=== PATIENT | female | born 1975 | race Caucasian/White ===

== ENCOUNTER → 2016-07-28 | Outpatient (CLI) | payer BC ==
--- NOTE | 2016-07-28 09:08 | CT ---
EXAMINATION TYPE: CT brain wo con DATE OF EXAM: 07/28/2016 8:54 AM COMPARISON: NONE HISTORY: Patient complains of headaches, numbness, weakness, and visual disturbances. CT DLP: 1106 mGycm Automated exposure control for dose reduction was used. FINDINGS: There is no acute intracranial hemorrhage, mass effect, or midline shift identified. The ventricles and sulci are within normal limits in size. The globes are intact and the visualized sinuses are ngoc ar. IMPRESSION: No acute intracranial hemorrhage, mass effect, or midline shift is seen. If symptoms persist would re commend MRI to assess for demyelinating disease.
--- NOTE | 2016-07-28 10:05 | US ---
EXAMINATION TYPE: US pelvis complete transvag DATE OF EXAM: 07/28/2016 8:59 AM COMPARISON: NONE CLINICAL HISTORY: N92.0 menorrhagia. Past 4 months heavy cycles with clots TECHNIQUE: TA and TV endovaginal scanning performed for better evaluation of the uterus and ovaries. Date of LMP: 07/01/2016 EXAM MEASUREMENTS: Uterus: 9.3 x 5.7 x 5.3cm Endometrial Stripe: 1.8cm Right Ovary: 2.9 x 2.5 x 1.9cm Left Ovary: 2.6 x 2.0 x 1.5cm 1. Uterus: Retroverted, wnl 2. Endometrium: Slightly thickened. 3. Right Ovary: wnl 4. Left Ovary: wnl 5. Bilateral Adnexa: left adnexa mild free fluid 6. Posterior cul-de-sac: wnl Nabothian cysts are present within the cervix. IMPRESSION: Endometrial stripe thickness is slightly thickened, consider follow-up COFFEE FARMER consult, endom etrial biopsy as indicated. Small amount of free fluid is noted.
== END | disposition home or self-care (01) ==
LOC: RADCTMAIN 08:30
PROVIDERS: ATTEND Pediatrics
DX: G43.909 Migraine, unspecified, not intractable, without status migrainosus (principal); N92.0 Excessive and frequent menstruation with regular cycle
CPT/HCPCS: 70450; 76830; 76856

== ENCOUNTER → 2016-09-08 | Outpatient (CLI) | payer BC ==
[2016-09-08 11:49] LABS: Basophils # (A) 0.1 k/uL (0-0.2); Basophils % (A) 1 %; CH 31.4; CHCM 35.2; Eosinophils # (A) 0.1 k/uL (0-0.7); Eosinophils % (A) 1 %; HCT 41.8 % (34.0-46.0); HDW 2.78; HGB 14.4 gm/dL (11.4-16.0); Luc # (Auto) 0.17; Luc % (Auto) 2; Lymphocytes # (A) 1.2 k/uL (1.0-4.8); Lymphocytes % (A) 17 %; MCH 30.8 pg (25.0-35.0); MCHC 34.4 g/dL (31.0-37.0); MCV 89.5 fL (80.0-100.0); Mean Platelet Volume 7.3; Monocytes # (A) 0.4 k/uL (0-1.0); Monocytes % (A) 6 %; Neutrophils # (A) 5.1 k/uL (1.3-7.7); Neutrophils % (A) 72 %; RBC 4.66 m/uL (3.80-5.40); RDW 12.8 % (11.5-15.5); WBC (Perox) 7.16
== END | disposition home or self-care (01) ==
LOC: LABPAT 10:34
PROVIDERS: ATTEND Obstetrics & Gynecology
DX: Z01.812 Encounter for preprocedural laboratory examination (principal)
CPT/HCPCS: 36415; 85025

== ENCOUNTER 2016-09-15 06:37 | Day surgery (SDC) | payer BC ==
[2016-09-14 09:07] VITALS: BMI 34.1
--- NOTE | 2016-09-14 16:59 | P.HPOB ---
History of Present Illness H&P Date: 09/14/16 Chief Complaint: Menorrhagia This is a 41 y.o. female 5, para 3, who presents for dilatation and curettage with hysteroscopy and Novasure endometrial ablation due to menorrhagia. She states her menses are occuring every 3-4 weeks and are very heavy the 1st 2 days with clots and she saturates an overnight pad every 2 hours. Her pelvic US showed uterus measuring 9.3 x5.7 x 5.3 cm and endometrium measuring 1.8 cm. Both ovaries were normal. OB Hx: . 3 vaginal deliveries and 2 miscarriages. Senior Portfolio Analyst Hx: No history of STDs. had a vasectomy. Social Hx: . Works as a dental hygienist. Review of Systems Genitourinary: Reports dysmenorrhea, Reports menorrhagia Menstruation: Reports menses variable, Reports period heavy Past Medical History Past Medical History: Skin Disorder Additional Past Medical History / Comment(s): possible migraines, varicose veins , eczema, acne, History of Any Multi-Drug Resistant Organisms: None Reported Past Surgical History: Cholecystectomy Additional Past Surgical History / Comment(s): D&C Past Anesthesia/Blood Transfusion Reactions: Motion Sickness Past Psychological History: No Psychological Hx Reported Smoking Status: Former smoker Past Alcohol Use History: Rare Additional Past Alcohol Use History / Comment(s): quit smoking 5 yrs ago, was some day smoker Past Drug Use History: None Reported - Past Family History Mother Family Medical History: No Reported History Medications and Allergies Home Medications Medication Instructions Recorded Confirmed Type Ibuprofen [Advil] 400 mg PO Q8HR PRN 09/14/16 09/14/16 History Allergies Allergy/AdvReac Type Severity Reaction Status Date / Time No Known Allergies Allergy Verified 09/14/16 08:59 Exam Osteopathic Statement: *. No significant issues noted on an osteopathic structural exam other than those noted in the History and Physical/Consult. - Vital Signs Vital signs: Intake and Output 09/14/16 09/14/16 09/14/16 06:59 14:59 22:59 Other: Weight 92.986 kg Patient Weight 09/15/16 06:59 Weight 92.986 kg HEENT: within normal limits. Heart: regular rate and rhythm Lungs: clear to auscultation bilaterally Abdomen: soft, non-tender Extremities: neg. Susi's Pelvic: uterus retroverted, non-tender with no adnexal masses or tenderness. Assessment and Plan (1) Menorrhagia with regular cycle Status: Acute Plan: Proceed with dilatation and curettage with hysteroscopy and Novasure endometrial ablation. I have discussed the risks, benefits, and alternative therapies for the above- mentioned procedure and for both sedation/anesthesia as well as necessary blood products administration, if indicated, as they pertain to this patient. The patient has indicated her understanding and acceptance of the risks and procedures discussed.
[~2016-09-15 06:37] MED LIST: DEXAMETHASONE SOD PHOSPHATE 10 MG/ML 1 ML VIAL IV ONE; HYDROmorphone 1 MG/ML 1 ML SYRINGE IVP PRN; LACTATED RINGERS 1,000 ML IV SCH; MIDAZOLAM 2 MG/2 ML VIAL IV PRN; ONDANSETRON 4 MG/2 ML VIAL IVP ONE; Pre Op ABX Message 1 EACH MISC MISCELLANE ONE; SCOPOLAMINE 1.5MG/72HR PATCH TRANSDERM ONE
[2016-09-15] MEDS ORDERED: LIDOCAINE 1% 20 ML VIAL (10MG/ML) FOR IV START INTRADERMA ONE (07:00)
[2016-09-15] MEDS ORDERED: KETOROLAC 30 MG/ML 1 ML VIAL ONE (07:26)
[2016-09-15] MEDS ORDERED: SUCCINYLCHOLINE CHLORIDE 100 MG/5 ML SYR IV ONE (07:26)
[2016-09-15] MEDS ORDERED: LIDOCAINE 1% INJ 10MG/ML (20 ML MDV) ONE (07:26)
[2016-09-15] MEDS ORDERED: PROPOFOL 10 MG/ML 20 ML VIAL IV ONE (07:26)
[2016-09-15] MEDS ORDERED: MIDAZOLAM 2 MG/2 ML VIAL ONE (07:26)
--- NOTE | 2016-09-15 08:06 | P.OP ---
Date of Procedure: 09/15/16 Preoperative Diagnosis: Menorrhagia Postoperative Diagnosis: Same Procedure(s) Performed: Dilation and curettage with hysteroscopy and NovaSure endometrial ablation Anesthesia: JOHN Surgeon: Mary Eduardo Estimated Blood Loss (ml): 3 Pathology: other (Endometrial curettings) Condition: stable Disposition: same day Indications for Procedure: This is a 41 y.o. female 5, para 3, who presents for dilatation and curettage with hysteroscopy and Novasure endometrial ablation due to menorrhagia. She states her menses are occuring every 3-4 weeks and are very heavy the 1st 2 days with clots and she saturates an overnight pad every 2 hours. Her pelvic US showed uterus measuring 9.3 x5.7 x 5.3 cm and endometrium measuring 1.8 cm. Both ovaries were normal. Operative Findings: Uterus is retroverted, sounded to 9 cm. Cervix is sounded to 3 cm. No adnexal masses are palpated. Upon hysteroscopy, a slightly dyssynchronous endometrial pattern was noted however no polyps or fibroids were visualized. A moderate amount of endometrial curettings are obtained. Description of Procedure: The patient is taken to the operating room. She is placed in the dorsal lithotomy position after general anesthesia was given. She is prepped and draped in the normal sterile fashion. Bladder is drained with a catheter and then removed. Pelvic exam is performed under anesthesia. Uterus is found to be retroverted with no adnexal masses. She is placed in slight Trendelenburg position. A right angle retractor is used to visualize the cervix. The anterior lip of the cervix is grasped with a single-tooth tenaculum. Cervix is sounded to 3 cm. Uterus is sounded to 9 cm. Cervix is gently dilated with Foster dilators until a hysteroscope could be passed. Hysteroscopy is performed using normal saline. The above noted findings are noted. Next a polyp forceps is introduced. A minimal amount of tissue was obtained. Next medium-sized size sharp curette was placed. A moderate amount of endometrial curettings were obtained. Next NovaSure array was inserted into the endometrial cavity. Length was set at 6 cm and width was determined to be 4.8 cm. Next cavity assessment was completed and passed on the first try. Next NovaSure array was fired at 158 W for 56 seconds. Next the array was removed, inspected and then discarded. Next the hysteroscope was reinserted. Uniform charring was noted. Pictures were taken. Hysteroscope was removed. Single-tooth tenaculum was removed from the anterior lip of the cervix. Minimal bleeding was noted. All other instruments removed from the vagina. Sponge counts were correct. Patient is taken to recovery room in stable condition.
[2016-09-15 08:15] VITALS: TEMP 97.4
[2016-09-15 09:22] VITALS: RESP 18
[2016-09-15 09:42] VITALS: BP 121/72; PULSE 70
== END 2016-09-15 10:11 | disposition home or self-care (01) ==
LOC: OR 06:37
PROVIDERS: ATTEND Obstetrics & Gynecology
DX: N92.0 Excessive and frequent menstruation with regular cycle (principal); N94.6 Dysmenorrhea, unspecified; Z87.891 Personal history of nicotine dependence
CPT/HCPCS: 81025; 88305; 58563; J2250; J1100; J2405; J2001; J1885; J0330; J2704

== ENCOUNTER → 2016-10-06 | Outpatient (CLI) | payer BC | END | disposition home or self-care (01) | LOC: LABWHC1 11:14 | PROVIDERS: ATTEND Obstetrics & Gynecology | DX: L68.0 Hirsutism (principal) | CPT/HCPCS: 36415; 82627; 83498; 84402; 84439; 84443 ==

== ENCOUNTER → 2019-08-16 | Outpatient (CLI) | payer OTHER ==
--- NOTE | 2019-08-16 10:04 | MM ---
Reason for exam: screening (asymptomatic). Baseline mammogram. Physical Findings: Nurse Summary: bilateral nodularity, all soft, movable, areas of light discoloration noted on bilateral areolas/nipples, patient notes no changes (nurse ts). MG 3D Screening Mammo W/Cad Bilateral CC and MLO view(s) were taken. The breast tissue is heterogeneously dense. This may lower the sensitivity of mammography. Finding: There is an equal density (isodense), circumscribed lobulated mass located 12.3 cm from the nipple in the posterior position of the left breast on MLO view. These results were verbally communicated with the patient and result sheet given to the patient on 08/16/19. ASSESSMENT: Incomplete: need additional imaging evaluation, BI-RAD 0 RECOMMENDATION: Special view mammogram and ultrasound of the left breast.
--- NOTE | 2019-08-16 10:05 | MM ---
Reason for exam: additional evaluation requested from abnormal screening. Physical Findings: Breast exam preformed at baseline screening. MG 3D Work Up W/Cad LT Spot compression MLO, XCCL, and ML view(s) were taken of the left breast. The breast tissue is heterogeneously dense. This may lower the sensitivity of mammography. Focal asymmetry left posterior, less well visualized on diagnostic imaging. These results were verbally communicated with the patient and result sheet given to the patient on 08/16/19. ASSESSMENT: Incomplete: need additional imaging evaluation, BI-RAD 0 RECOMMENDATION: Ultrasound of the left breast.
--- NOTE | 2019-08-16 10:09 | USB ---
Reason for exam: additional evaluation requested from abnormal screening. US Breast Workup Limited LT Left limited breast ultrasound including focal area of concern, retroareolar and axilla demonstrates a 0.9 x 0.3 x 0.9cm oval, hypoechoic lesion at 3 o'clock, lobe versus node, normal parenchymal and tissue favored. These results were verbally communicated with the patient and result sheet given to the patient on 08/16/19. ASSESSMENT: Probably benign, BI-RAD 3 RECOMMENDATION: Follow-up diagnostic mammogram and ultrasound of the left breast in 6 months.
== END | disposition home or self-care (01) ==
LOC: RADMAMWWP 07:49
PROVIDERS: ATTEND Pediatrics
DX: Z12.31 Encounter for screening mammogram for malignant neoplasm of breast (principal); R92.8 Other abnormal and inconclusive findings on diagnostic imaging of breast
CPT/HCPCS: 77061; 77063; 77065; 77067

== ENCOUNTER → 2020-06-09 | Outpatient (CLI) | payer OTHER ==
--- NOTE | 2020-06-09 11:01 | MM ---
Reason for exam: follow-up at short interval from prior study. Last mammogram was performed 10 months ago. Physical Findings: Nurse did not find any significant physical abnormalities on exam. MG 3D Diag Mammo W/Cad LT CC, MLO, and XCCL view(s) were taken of the left breast. Prior study comparison: August 16, 2019, left breast MG 3d work up w/cad LT. August 16, 2019, bilateral MG 3d screening mammo w/cad. The breast tissue is heterogeneously dense. This may lower the sensitivity of mammography. Focal asymmetry posterior ML. No significant new findings when compared with previous films. These results were verbally communicated with the patient and result sheet given to the patient on 06/09/20. ASSESSMENT: Benign, BI-RAD 2 RECOMMENDATION: Return to routine screening mammogram schedule for both breasts. Back on schedule for July 2020.
--- NOTE | 2020-06-09 11:02 | USB ---
Reason for exam: follow-up at short interval from prior study. US Breast Limited LT Prior study comparison: August 16, 2019, left breast US breast workup limited LT. Left limited breast ultrasound including focal area of concern, retroareolar and axilla demonstrates a 8 x 3 x 7mm hypoehoic lesion at 3 o'clock. These results were verbally communicated with the patient and result sheet given to the patient on 06/09/20. ASSESSMENT: Benign, BI-RAD 2 RECOMMENDATION: Return to routine screening mammogram schedule for both breasts. Back on schedule for July 2020.
== END | disposition home or self-care (01) ==
LOC: RADMAMWWP 07:09
PROVIDERS: ATTEND Pediatrics
DX: R92.8 Other abnormal and inconclusive findings on diagnostic imaging of breast (principal)
CPT/HCPCS: 77061; 77065

== ENCOUNTER → 2022-01-05 | Outpatient (CLI) | payer OTHER ==
--- NOTE | 2022-01-07 07:31 | MM ---
Reason for Exam: Screening (asymptomatic). Last mammogram was performed 2 year(s) and 5 month(s) ago. Indicated Problems: Skin changes to breast of the left side for 1 Month(s). Patient History: Menarche at age 12. First Full-Term at age 28. Last menstrual period: Risk Values: Svetlana 5 year model risk: 0.9%. NCI Lifetime model risk: 11.7%. Prior Study Comparison: 08/16/2019 Bilateral Screening Mammogram, [facility]. 08/16/2019 Left Diagnostic Mammogram, [facility]. 06/09/2020 Left Diagnostic Mammogram, [facility]. Tissue Density: The breast tissue is heterogeneously dense. This may lower the sensitivity of mammography. Findings: Analyzed By CAD. There is no suspicious group of microcalcifications or new suspicious mass in either breast. Unchanged focal asymmetry posterior ML likely a lymph node. No significant change from prior examination. Overall Assessment: Benign, BI-RAD 2 Management: Screening Mammogram of both breasts in 1 year. A clinical breast exam by your physician is recommended on an annual basis and results should be correlated with mammographic findings. Electronically signed and approved by: Carlton Sands D.O.
== END | disposition home or self-care (01) ==
LOC: RADMAMWWP 16:13
PROVIDERS: ATTEND Pediatrics
DX: Z12.31 Encounter for screening mammogram for malignant neoplasm of breast (principal)
CPT/HCPCS: 77063; 77067

== ENCOUNTER → 2022-01-06 | Outpatient (CLI) | payer OTHER ==
[2022-01-06 14:42] LABS: Basophils # (A) 0.05 X 10*3/uL (0.00-0.10); Basophils % (A) 0.9 %; Eosinophils # (A) 0.09 X 10*3/uL (0.04-0.35); Eosinophils % (A) 1.6 %; HCT 42.5 % (37.2-46.3); HGB 14.1 g/dL (12.0-15.0); Immature Grans, Automated 0.2 %; Lymphocytes # (A) 1.08 X 10*3/uL (0.90-5.00); Lymphocytes % (A) 18.7 %; MCH 30.9 pg (27.0-32.0); MCHC 33.2 g/dL (32.0-37.0); MCV 93.2 fL (80.0-97.0); Mean Platelet Volume 9.9 fL (9.5-12.2); Monocytes # (A) 0.53 X 10*3/uL (0.20-1.00); Monocytes % (A) 9.2 %; NRBC Per 100 WBC 0 /100 WBCS (0.0-0.0); Neutrophils # (A) 4.03 X 10*3/uL (1.80-7.70); Neutrophils % (A) 69.4 %; Platelet Count 319 X 10*3/uL (140-440); RBC 4.56 X 10*6/uL (4.10-5.20); RDW 12.4 % (11.5-14.5); WBC 5.79 X 10*3/uL (4.50-10.00)
[2022-01-06 15:00] LABS: ALT 9 U/L (8-44); AST 16 U/L (13-35); African American GFR (CKD) 96.7 (60.0-200.0); Albumin 4.4 g/dL (3.8-4.9); Albumin/Globulin Ratio 1.86 (1.60-3.17); Alkaline Phosphatase 41 U/L (41-126); BUN/Creat Ratio 14.02 Ratio (12.00-20.00); Blood Urea Nitrogen 11.9 mg/dL (9.0-27.0); Calcium 9.2 mg/dL (8.7-10.3); Carbon Dioxide 25.4 mmol/L (20.0-27.5); Chloride 104 mmol/L (96-109); Chol/HDL Ratio 2.91 Ratio; Globulin 2.4 g/dL (1.6-3.3); Glucose 88 mg/dL (70-110); LDL Cholesterol,Calculated 112.5 mg/dL (0.0-131.0); Non-African American GFR(CKD) 83.5 (60.0-200.0); Potassium 4.5 mmol/L (3.5-5.5); Sodium 141 mmol/L (135-145); Total Protein 6.7 g/dL (6.2-8.2); VLDL Calculation 10.26 mg/dL (5.00-40.00)
[2022-01-06 15:06] LABS: Hepatitis A Antibody IgM Nonreactive (Nonreactive); Hepatitis B Core IgM Nonreactive (Nonreactive); Hepatitis B Surface Antigen Nonreactive (Nonreactive); Hepatitis C IgG Antibody Nonreactive (Nonreactive)
[2022-01-07 13:14] LABS: C. trachomatis,PCR Negative (Neg,Equiv); Chlamydia trachomatis Source Urine; N. gonorrhoeae,PCR Negative (Neg,Equiv); Neisseria Source Urine
[2022-01-07 14:45] LABS: HIV 2 AB Non-Reactive (Non-Reactive); HIV AB P24 Non-Reactive (Non-Reactive); HIV P24 AG Non-Reactive (Non-Reactive)
== END | disposition home or self-care (01) ==
LOC: LABWHC1 07:27
PROVIDERS: ATTEND Physician Assistant
DX: Z00.01 Encounter for general adult medical examination with abnormal findings (principal); Z13.220 Encounter for screening for lipoid disorders; F41.9 Anxiety disorder, unspecified; Z72.51 High risk heterosexual behavior
CPT/HCPCS: 36415; 80053; 80061; 80074; 84443; 85025; 86780; 87390; 87491; 87591

== ENCOUNTER 2022-07-26 09:31 | Emergency (ER) | payer OTHER ==
[2022-07-26 09:58] VITALS: RESP 16
[2022-07-26] MEDS ORDERED: RX INFO: IV CONTRAST WAS GIVEN 1 EACH MISC MISCELLANE PRN (09:58)
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
[2022-07-26 10:30] LABS: Basophils % (A) 0 %; Eosinophils # (A) 0.1 k/uL (0-0.7); Eosinophils % (A) 1 %; Lymphocytes # (A) 0.9 k/uL (1.0-4.8); Lymphocytes % (A) 14 %; MCH 31.9 pg (25.0-35.0); MCHC 35.7 g/dL (31.0-37.0); MCV 89.4 fL (80.0-100.0); Mean Platelet Volume 7.3; Monocytes # (A) 0.4 k/uL (0-1.0); Monocytes % (A) 6 %; Neutrophils % (A) 77 %; Platelet Count 291 k/uL (150-450); RDW 12.8 % (11.5-15.5); WBC 6.5 k/uL (3.8-10.6)
[2022-07-26 10:39] LABS: ALT 21 U/L (4-34); AST 23 U/L (14-36); African American GFR (CKD) >90 (>60 ml/min/1.73 sqM); Albumin 4.2 g/dL (3.5-5.0); Alcohol <10 mg/dL; Alkaline Phosphatase 36 U/L (38-126); Anion Gap 6 mmol/L; Blood Urea Nitrogen 8 mg/dL (7-17); Calcium 8.8 mg/dL (8.4-10.2); Carbon Dioxide 25 mmol/L (22-30); Chloride 108 mmol/L (98-107); Glucose 84 mg/dL (74-99); Non-African American GFR(CKD) >90 (>60 ml/min/1.73 sqM); Potassium 3.8 mmol/L (3.5-5.1); Sodium 139 mmol/L (137-145); Total Bilirubin 2.2 mg/dL (0.2-1.3); Total Protein 6.9 g/dL (6.3-8.2)
[2022-07-26 10:47] LABS: INR 0.9 (<1.2); Partial Thromboplastin Time 23.5 sec (22.0-30.0); Prothrombin Time 9.5 sec (9.0-12.0)
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
[2022-07-26] MEDS ORDERED: ACET/COD 300 MG/30 MG STARTER PACK 6 TAB BTL PO STA (11:40)
[2022-07-26 12:11] VITALS: BP 133/94; PULSE 87; TEMP 97.8
== END 2022-07-26 12:11 | disposition home or self-care (01) ==
LOC: EC 09:31
DX: S20.219A Contusion of unspecified front wall of thorax, initial encounter (principal); Y92.411 Interstate highway as the place of occurrence of the external cause
CPT/HCPCS: 36415; 93005; 80053; 84484; 85025; 85610; 85730; 80320; 71260; 99285; Q9967

== ENCOUNTER → 2023-04-28 | Outpatient (CLI) | payer OTHER ==
--- NOTE | 2023-05-01 08:07 | MM ---
Reason for Exam: Screening (asymptomatic). Last mammogram was performed 1 year(s) and 4 month(s) ago. Patient History: Menarche at age 12. First Full-Term at age 28. Premenopausal. Risk Values: Svetlana 5 year model risk: 1.0%. NCI Lifetime model risk: 11.6%. Prior Study Comparison: 08/16/2019 Left Diagnostic Mammogram, [facility]. 06/09/2020 Left Diagnostic Mammogram, [facility]. 01/05/2022 Bilateral MG 3D screening mammo w/cad, [facility]. Tissue Density: The breast tissue is heterogeneously dense. This may lower the sensitivity of mammography. Findings: Analyzed By CAD. There is no suspicious group of microcalcifications or new suspicious mass. Overall Assessment: Negative, BI-RAD 1 Management: Screening Mammogram of both breasts in [address] [facility] will attempt to contact patient to return for supplemental views and ultrasound if indicated. Patient should continue monthly self-breast exams. A clinical breast exam by your physician is recommended on an annual basis. This exam should not preclude additional follow-up of suspicious palpable abnormalities. Note on Svetlana scores and lifetime risk: 1. A Svetlana score greater than 3% is considered moderate risk. If this is the case, consider specialist referral to assess eligibility for a risk reducing agent. 2. If overall lifetime risk for the development of breast cancer is 20% or higher, the patient may qualify for future screening with alternating mammogram and breast MRI. Electronically signed and approved by: Tom Mendoza DO
== END | disposition home or self-care (01) ==
LOC: RADMAMWWP 16:59
PROVIDERS: ATTEND Pediatrics
DX: Z12.31 Encounter for screening mammogram for malignant neoplasm of breast (principal)
CPT/HCPCS: 77063; 77067

== ENCOUNTER 2024-08-18 18:45 | Emergency (ER) | payer OTHER ==
[2024-08-18 19:13] VITALS: RESP 18; TEMP 98.5
--- NOTE | 2024-08-18 20:11 | ED ---
General Adult HPI <Tom Lake Poonam - Last Filed: 08/18/24 22:15> - General Source: patient Mode of arrival: ambulatory Limitations: no limitations <Sierra LeoneanEliana - Last Filed: 08/19/24 10:10> - General Chief complaint: Shortness of Breath Stated complaint: cough back pain Time Seen by Provider: 08/18/24 19:17 - History of Present Illness Initial comments: Patient is a 49-year-old female past medical history smoking, presents today for left lower rib pain, worsens with deep breathing. Pt states was diagnosed with bronchitis on Monday at her PCP's office. States that since then she has had w orsening left lower rib pain, is intermittently across her diaphragm worse with coughing and deep breathing. Patient took DayQuil yesterday morning no pain medication since. She states she has had a persistent and worsening cough, intermittently productive of sputum no hemoptysis. She used an old albuterol inhaler last night that seem to intermittently help her symptoms. She is currently taking azithromycin and prednisone. Denies any fevers, endorses chills. Denies other chest pain, does states she feels somewhat short of breath intermittently. Denies nausea, vomiting, abdominal pain. No history of prior PE or ACS. No recent travel surgeries hospitalizations. She is not on co ntrol or estrogen placement. No lower extremity swelling. She does currently smoke 4 cigarettes a day. (Eliana Eastman) - Related Data Home Medications Medication Instructions Recorded Confirmed Ibuprofen [Advil] 400 mg PO Q8HR PRN 09/14/16 09/14/16 Previous Rx's Medication Instructions Recorded Cyclobenzaprine [Flexeril] 10 mg PO TID PRN #12 tablet 07/26/22 Albuterol Inhaler [Ventolin Hfa 1 - 2 puff INHALATION Q4HR PRN #1 08/18/24 Inhaler] each Allergies Allergy/AdvReac Type Severity Reaction Status Date / Time No Known Allergies Allergy Verified 08/18/24 19:13 Review of Systems ROS Other: All systems not noted in ROS Statement are negative. <Tom Lake - Last Filed: 08/18/24 22:15> ROS Other: All systems not noted in ROS Statement are negative. <Eliana Eastman - Last Filed: 08/19/24 10:10> ROS Statement: Those systems with pertinent positive or pertinent negative responses have been documented in the HPI. Past Medical History Past Medical History: No Reported History History of Any Multi-Drug Resistant Organisms: None Reported Past Surgical History: Cholecystectomy Additional Past Surgical History / Comment(s): D&C Past Psychological History: No Psychological Hx Reported Smoking Status: Current every day smoker Past Alcohol Use History: Occasional Past Drug Use History: None Reported <Eliana Eastman - Last Filed: 08/19/24 10:10> General Exam Limitations: no limitations <Eliana Eastman - Last Filed: 08/19/24 10:10> - General Exam Comments Initial Comments: PE: CONSTITUTIONAL: No apparent distress, well appearing SKIN: Warm, dry, no jaundice, hives or petechiae EYES: Pupils are equally round, extraocular movements intact without nystagmus, clear conjunctiva, non-icteric sclera HENT: Normocephalic, atraumatic, moist mucus membranes, oropharynx clear without exudates NECK: , Full range of motion, normal appearance PULMOclear to auscultation without wheezes, rhonchi, or rales, normal excursion, no accessory muscle use and no stridor] CARDIOVASCULAR: Regular rate, rhythm, normal S1 and S2. No appreciated murmurs, rubs or gallops. Strong radial pulses with intact distal perfusion. No lower extremity edema GASTROINTESTINAL: Soft, active bowel sounds throughout, non-tender, non- distended, no palpable masses, no rebound or guarding. No hepatosplenomegaly MUSCULOSKELETAL: Extremities have no gross deformity, no edema, redness, or swelling. No calf swelling NEUROLOGIC:_a/o x 3, GCS 15, normal mentation and speech. Moves all extremities x 4 without motor or sensory deficit PSYCHIATRIC:_normal mood and affect, thought process is clear and linear (Eliana Eastman) Course Vital Signs 08/18/24 08/18/24 08/18/24 19:10 19:35 21:22 Temperature 98.5 F Pulse Rate 95 88 Respiratory 18 18 Rate Blood Pressure 166/89 O2 Sat by Pulse 96 Oximetry 08/18/24 08/18/24 21:33 22:25 Temperature Pulse Rate 84 78 Respiratory 18 Rate Blood Pressure 153/103 O2 Sat by Pulse 100 Oximetry EKG Findings - EKG Comments: EKG Findings:: Sinus rhythm, rate 69 bpm CO interval 159 ms QT/QTc 347/366 ms, borderline left axis deviation, no ST elevations or depressions, T wave inversion lead aVR, no STEMI <Eliana Eastman - Last Filed: 08/19/24 10:10> Medical Decision Making - Lab Data Result diagrams: 08/18/24 20:19 <Tom Lake - Last Filed: 08/18/24 22:15> - Lab Data Result diagrams: 08/18/24 20:19 08/18/24 20:19 <Eliana Eastman - Last Filed: 08/19/24 10:10> - Medical Decision Making Chest x-ray is showing bilateral lower atelectasis versus infiltrate. Patient currently on antibiotics. She does test positive for RSV likely the cause of her acute bronchitis she will continue antibiotics. Workup in the emergency department with laboratory test including CBC, CMP, D-dimer and troponin is unremarkable. Stable for discharge. (Tom Lake Poonam) Was pt. sent in by a medical professional or institution (, PA, SLEEP MEDICINE PHYSICIAN, urgent care, hospital, or snf...) When possible be specific @ -No Did you speak to anyone other than the patient for history (EMS, parent, family, police, friend...)? What history was obtained from this source @ -No Did you review nursing and triage notes (agree or disagree)? Why? @ -I reviewed nursing and triage notes-states diagnosed of bronchitis on Monday Were old charts reviewed (outside hosp., previous admission, EMS record, old EKG, old radiological studies, urgent care reports/EKG's, snf records)? Report findings @ -Medical records reviewed Differential Diagnosis (chest pain, altered mental status, abdominal pain women, abdominal pain men, vaginal bleeding, weakness, fever, dyspnea, syncope, headache, dizziness, GI bleed, back pain, seizure, CVA, palpatations, mental health, musculoskeletal)? @Differential Dyspnea: Coronary syndrome, arrhythmia, tamponade, asthma, COPD, pulmonary embolism, pneumonia, pneumothorax, pulmonary effusion, anaphylaxis, diabetic ketoacidosis, flailed chest, pulmonary contusion, diaphragmatic rupture, anemia, neuromuscular, this is not meant to be an all-inclusive list. EKG interpreted by me (3pts min.). @ -As above X-rays interpreted by me (1pt min.). @Pending at time of signout to oncoming physician CT interpreted by me (1pt min.). @ -None done U/S interpreted by me (1pt. min.). @ -None done What testing was considered but not performed or refused? (CT, X-rays, U/S, labs)? Why? @ -None What meds were considered but not given or refused? Why? @ -None Did you discuss the management of the patient with other professionals (professionals i.e. , PA, SLEEP MEDICINE PHYSICIAN, lab, RT, psych nurse, social work supervisor, ambulance paramedic, teacher, correction officer reformatory, manager case management)? Give summary @ -No Was smoking cessation discussed for >3mins.? @ -No Was critical care preformed (if so, how long)? @ -No Were there social determinants of health that impacted care today? How? (Homelessness, low income, unemployed, alcoholism, drug addiction, transportati on, low edu. Level, literacy, decrease access to med. care, senior living, rehab)? @ -No Was there de-escalation of care discussed even if they declined (Discuss DNR or withdrawal of care, Hospice)? @ -No What co-morbidities impacted this encounter? (DM, HTN, Smoking, COPD, CAD, Cancer, CVA, ARF, Chemo, Hep., AIDS, mental health diagnosis, sleep apnea, morbid obesity)? @Current smoker Was patient admitted / discharged? Hospital course, mention meds given and route, prescriptions, significant lab abnormalities, going to OR and other pertinent info. @Signed out to oncoming physician pending completion of labs -this is a 49-year-old female, previously healthy presenting today for pleuritic chest pain, mild shortness of breath shortly after being diagnosed with bronchitis. Afebrile here, no hypoxemia. Hypertensive, no tachycardia. Exam shows scant wheezing, rhonchi in left lower and left mid lung grove. She is nontoxic- appearing. Plan for Decadron, DuoNeb, Robitussin, Tylenol, basic labs EKG, D- dimer. D-dimer will determine whether patient received chest x-ray or CTA. Highly suspect pneumonia versus pleuritis as opposed to PE or other acute process. Patient agreeable plan of care. Patient signed out to oncoming physician Dr. Helmreich pending completion of lab. (S[place] Leonean,Eliana) - Lab Data Lab Results 08/18/24 08/18/24 08/18/24 Range/Units 20:19 20:19 20:19 WBC 6.3 (3.8-10.6) k/uL RBC 4.96 (3.80-5.40) m/uL Hgb 15.4 (11.4-16.0) gm/dL Hct 44.6 (34.0-46.0) % MCV 89.9 (80.0-100.0) fL MCH 30.9 (25.0-35.0) pg MCHC 34.4 (31.0-37.0) g/dL RDW 12.5 (11.5-15.5) % Plt Count 287 (150-450) k/uL MPV 8.5 Neutrophils % 77 % Lymphocytes % 13 % Monocytes % 7 % Eosinophils % 2 % Basophils % 1 % Neutrophils # 4.8 (1.3-7.7) k/uL Lymphocytes # 0.8 L (1.0-4.8) k/uL Monocytes # 0.4 (0-1.0) k/uL Eosinophils # 0.1 (0-0.7) k/uL Basophils # 0.0 (0-0.2) k/uL PT 9.5 L (10.0-12.5) sec INR 0.8 (<1.2) APTT 20.2 L (22.0-30.0) sec D-Dimer 0.41 (<0.60) mg/L FEU Sodium 138 (137-145) mmol/L Potassium 4.5 (3.5-5.1) mmol/L Chloride 103 (98-107) mmol/L Carbon Dioxide 23 (22-30) mmol/L Anion Gap 12 mmol/L BUN 23 H (7-17) mg/dL Creatinine 0.69 (0.52-1.04) mg/dL Est GFR (CKD-EPI)AfAm >90 (>60 ml/min/1.73 sqM) Est GFR (CKD-EPI)NonAf >90 (>60 ml/min/1.73 sqM) Glucose 108 H (74-99) mg/dL Calcium 9.5 (8.4-10.2) mg/dL Total Bilirubin 0.8 (0.2-1.3) mg/dL AST 45 H (14-36) U/L ALT 42 H (4-34) U/L Alkaline Phosphatase 27 L (38-126) U/L Troponin I (0.000-0.034) ng/mL NT-Pro-B Natriuret Pep 81 pg/mL Total Protein 7.6 (6.3-8.2) g/dL Albumin 4.6 (3.5-5.0) g/dL Influenza Type A (PCR) (Not Detectd) Influenza Type B (PCR) (Not Detectd) RSV (PCR) (Not Detectd) SARS-CoV-2 (PCR) (Not Detectd) 08/18/24 08/18/24 Range/Units 20:19 20:19 WBC (3.8-10.6) k/uL RBC (3.80-5.40) m/uL Hgb (11.4-16.0) gm/dL Hct (34.0-46.0) % MCV (80.0-100.0) fL MCH (25.0-35.0) pg MCHC (31.0-37.0) g/dL RDW (11.5-15.5) % Plt Count (150-450) k/uL MPV Neutrophils % % Lymphocytes % % Monocytes % % Eosinophils % % Basophils % % Neutrophils # (1.3-7.7) k/uL Lymphocytes # (1.0-4.8) k/uL Monocytes # (0-1.0) k/uL Eosinophils # (0-0.7) k/uL Basophils # (0-0.2) k/uL PT (10.0-12.5) sec INR (<1.2) APTT (22.0-30.0) sec D-Dimer (<0.60) mg/L FEU Sodium (137-145) mmol/L Potassium (3.5-5.1) mmol/L Chloride (98-107) mmol/L Carbon Dioxide (22-30) mmol/L Anion Gap mmol/L BUN (7-17) mg/dL Creatinine (0.52-1.04) mg/dL Est GFR (CKD-EPI)AfAm (>60 ml/min/1.73 sqM) Est GFR (CKD-EPI)NonAf (>60 ml/min/1.73 sqM) Glucose (74-99) mg/dL Calcium (8.4-10.2) mg/dL Total Bilirubin (0.2-1.3) mg/dL AST (14-36) U/L ALT (4-34) U/L Alkaline Phosphatase (38-126) U/L Troponin I <0.012 (0.000-0.034) ng/mL NT-Pro-B Natriuret Pep pg/mL Total Protein (6.3-8.2) g/dL Albumin (3.5-5.0) g/dL Influenza Type A (PCR) Not Detected (Not Detectd) Influenza Type B (PCR) Not Detected (Not Detectd) RSV (PCR) Detected A (Not Detectd) SARS-CoV-2 (PCR) Not Detected (Not Detectd) Disposition Is patient prescribed a controlled substance at d/c from ED?: No Time of Disposition: 22:04 <Tom Lake - Last Filed: 08/18/24 22:15> <Eliana Eastman - Last Filed: 08/19/24 10:10> Clinical Impression: RSV (respiratory syncytial virus infection) Disposition: HOME SELF-CARE Condition: Good Instructions (If sedation given, give patient instructions): Respiratory Syncytial Virus (ED) Prescriptions: Albuterol Inhaler [Ventolin Hfa Inhaler] 1 - 2 puff INHALATION Q4HR PRN #1 each PRN Reason: Shortness Of Breath Referrals: Michael Gomes MD [Primary Care Provider] - 1-2 days
[2024-08-18] MEDS: guaiFENesin 600 MG TABLET.ER PO STA (20:20)
[2024-08-18] MEDS: ACETAMINOPHEN TAB 500 MG TAB PO STA (20:20)
[2024-08-18] MEDS: SODIUM CHLORIDE 0.9% 1,000 ML IV STA (20:24)
[2024-08-18] MEDS: KETOROLAC 15 MG/ML 1 ML VIAL IVP STA (20:25)
[2024-08-18] MEDS: DEXAMETHASONE SOD PHOSPHATE 10 MG/ML 1 ML VIAL IVP STA (20:26)
[2024-08-18 20:39] LABS: Basophils % (A) 1 %; Eosinophils # (A) 0.1 k/uL (0-0.7); Eosinophils % (A) 2 %; HCT 44.6 % (34.0-46.0); HGB 15.4 gm/dL (11.4-16.0); Lymphocytes # (A) 0.8 k/uL (1.0-4.8); Lymphocytes % (A) 13 %; MCH 30.9 pg (25.0-35.0); MCHC 34.4 g/dL (31.0-37.0); MCV 89.9 fL (80.0-100.0); Mean Platelet Volume 8.5; Monocytes # (A) 0.4 k/uL (0-1.0); Monocytes % (A) 7 %; Neutrophils # (A) 4.8 k/uL (1.3-7.7); Neutrophils % (A) 77 %; Platelet Count 287 k/uL (150-450); RBC 4.96 m/uL (3.80-5.40); RDW 12.5 % (11.5-15.5); WBC 6.3 k/uL (3.8-10.6)
[2024-08-18 20:56] LABS: ALT 42 U/L (4-34); AST 45 U/L (14-36); African American GFR (CKD) >90 (>60 ml/min/1.73 sqM); Albumin 4.6 g/dL (3.5-5.0); Alkaline Phosphatase 27 U/L (38-126); Anion Gap 12 mmol/L; Blood Urea Nitrogen 23 mg/dL (7-17); Calcium 9.5 mg/dL (8.4-10.2); Carbon Dioxide 23 mmol/L (22-30); Chloride 103 mmol/L (98-107); Glucose 108 mg/dL (74-99); Non-African American GFR(CKD) >90 (>60 ml/min/1.73 sqM); Sodium 138 mmol/L (137-145); Total Bilirubin 0.8 mg/dL (0.2-1.3); Total Protein 7.6 g/dL (6.3-8.2)
[2024-08-18 21:03] LABS: INR 0.8 (<1.2); Prothrombin Time 9.5 sec (10.0-12.5)
[2024-08-18 21:04] LABS: NT-Pro-B-Type Natriuretic Pept 81 pg/mL
[2024-08-18 21:20] LABS: Influenza A Not Detected (Not Detectd); Influenza B Not Detected (Not Detectd); RSV Detected (Not Detectd)
[2024-08-18] MEDS: ALBUTEROL NEBULIZED 2.5 MG/3 ML INHALATION STA (21:22)
[2024-08-18] MEDS: IPRATROPIUM 0.5 MG/2.5 ML NEBU INHALATION STA (21:22)
[2024-08-18 21:27] LABS: Partial Thromboplastin Time 20.2 sec (22.0-30.0)
--- NOTE | 2024-08-18 22:06 | XR ---
EXAMINATION TYPE: XR chest 2V DATE OF EXAM: 08/18/2024 9:52 PM COMPARISON: None. CLINICAL INDICATION: Female, 49 years old with history of cough, TECHNIQUE: XR chest 2V view(s) obtained. FINDINGS: The heart size is normal. The pulmonary vasculature is normal. Mild bibasilar infiltrates may be present. Correlate for subsegmental atelectasis or early pneumonia. IMPRESSION: 1. Mild bibasilar infiltrates. Correlate for subsegmental atelectasis or early pneumonia [facility], , 08/18/2024 10:04 PM
[2024-08-18 22:18] LABS: Potassium 4.5 mmol/L (3.5-5.1)
[2024-08-18 22:28] VITALS: BP 153/103; PULSE 78
== END 2024-08-18 22:25 | disposition home or self-care (01) ==
LOC: EC 18:45
DX: R05.9 Cough, unspecified (principal); B97.4 Respiratory syncytial virus as the cause of diseases classified elsewhere; F17.210 Nicotine dependence, cigarettes, uncomplicated
CPT/HCPCS: 36415; 94640; 93005; 85379; 83880; 80053; 84484; 85025; 85610; 85730; 87636; 71046; 99285; 96374; 96375; 96361; J1100; J1885

== ENCOUNTER → 2024-10-18 | Outpatient (CLI) | payer OTHER ==
--- NOTE | 2024-10-21 10:26 | MM ---
Reason for Exam: Screening (asymptomatic). Last mammogram was performed 1 year(s) and 5 month(s) ago. Patient History: Menarche at age 12. First Full-Term at age 28. Premenopausal. Patient has history of breast feeding. Risk Values: Svetlana 5 year model risk: 1.1%. NCI Lifetime model risk: 11.3%. Prior Study Comparison: 08/16/2019 Bilateral Screening Mammogram, [facility]. 08/16/2019 Left Diagnostic Mammogram, [facility]. 06/09/2020 Left Diagnostic Mammogram, [facility]. 01/05/2022 Bilateral MG 3D screening mammo w/cad, [facility]. 04/28/2023 Bilateral MG 3D screening mammo w/cad, [facility]. Tissue Density: The breasts are heterogeneously dense, which may obscure small masses. Findings: Analyzed By CAD. There is no suspicious group of microcalcifications or new suspicious mass in either breast. Overall Assessment: Negative, BI-RAD 1 Management: Screening Mammogram of both breasts in 1 year. Patient should continue monthly self-breast exams. A clinical breast exam by your physician is recommended on an annual basis. This exam should not preclude additional follow-up of suspicious palpable abnormalities. Note on Svetlana scores and lifetime risk: 1. A Svetlana score greater than 3% is considered moderate risk. If this is the case, consider specialist referral to assess eligibility for a risk reducing agent. 2. If overall lifetime risk for the development of breast cancer is 20% or higher, the patient may qualify for future screening with alternating mammogram and breast MRI. [facility], , 10/18/2024 10:21 AM. Electronically signed and approved by: Luis Watt M.D. Radiologis
== END | disposition home or self-care (01) ==
LOC: RADMAMWWP 08:11
PROVIDERS: ATTEND Pediatrics
DX: Z12.31 Encounter for screening mammogram for malignant neoplasm of breast (principal); R92.333 Mammographic heterogeneous density, bilateral breasts
CPT/HCPCS: 77063; 77067